=== PATIENT | female | born 1975 | race African-American/Black ===

== ENCOUNTER 2022-06-22 16:26 | Emergency (ER) | payer OTHER, SELFPAY ==
--- NOTE | ~2022-06-22 | XR_ITS ---
EXAMINATION: XR chest 2V DATE: 06/22/2022 17:03 INDICATION: Chest pain. Nausea and vomiting. TECHNIQUE: Frontal and lateral views of the chest were obtained. COMPARISON: None. FINDINGS: The chest demonstrates clear lungs without pneumonia, pleural effusion, or pneumothorax. Th e heart size is normal. Surgical clips in the right upper quadrant are likely from cholecystectomy. IMPRESSION: 1. No acute cardiopulmonary disease. Reviewed, dictated and finalized at location A.
--- NOTE | ~2022-06-22 | CT_ITS ---
EXAMINATION: CTA chest PE protocol DATE: 06/22/2022 22:23 INDICATION: elevated dimer, L shoulder/back/chest/breast pain TECHNIQUE: Computed tomography angiography (CTA) of the chest was performed with 100 mL Omnipaque-350 intravenous contrast timed to evaluate the pulmonary arteries. Coronal maximum intensity projection 3D-reconstructions were created by the technologist. The dose-length product (DLP) was 169.33 mGy-cm. Automated exposure control and iterative reconstruction technique were employed. COMPARISON: X-ray chest, same date. FINDINGS: Lung parenchyma and airways: Minimal subsegmental left medial basal atelectasis or consolidation. Pleura: Small left pleural effusion. Thoracic inlet, axillae and chest wall: Unremarkable. Thoracic aorta: Normal. Mediastinum: Normal. Heart and pericardium: Normal. Coronary artery calcifications: Absent. Upper abdomen: No significant finding. Bones: No acute osseous finding. Pulmonary arteries: Study quality: Adequate. No pulmonary emboli detected. IMPRESSION: No CT evidence of acute pulmonary embolus. Small left pleural effusion. Minimal, subsegmental left me dial basal atelectasis or consolidation. Otherwise, no acute process detected in the chest. Reviewed, dictated and finalized at location K. IMPRESSION: No CT evidence of acute pulmonary embolus. Small left pleural effusion. Minimal , subsegmental left medial basal atelectasis or consolidation. Otherwise, no ac white [place] process detected in the chest.
--- NOTE | 2022-06-22 16:28 | ECG_ITS ---
Measurements Intervals [place] Rate: 65 P: 62 MN: 145 QRS: 51 QRSD: 74 T: 44 QT: 359 QTc: 374 Interpretive Statements SINUS RHYTHM NO PREVIOUS ECG AVAILABLE FOR COMPARISON Electronically Signed On 06-23-2022 17:08:31 CDT by Kiarra Washington M.D.
[2022-06-22 17:05] VITALS: BP 149/95; PULSE 70; RESP 16; TEMP 36.9; O2SAT 100
[2022-06-22 17:28] LABS: Basophils Absolute Auto 0.1 K/mm3 (0.0-0.1); Basophils Percent Auto 0.9 % (0.2-1.2); Eosinophils Absolute Auto 0.2 K/mm3 (0-0.3); Hematocrit 41.9 % (37.0-47.0); Hemoglobin 13.5 g/dL (12.0-15.0); Immature Granulocyte Absolute 0.02 K/mm3 (0.00-0.031); Immature Granulocyte Percent A 0.3 % (0-0.5); Lymphocytes Absolute Auto 1.96 K/mm3 (0.9-3.2); Lymphocytes Percent Auto 25.8 % (18.3-44.2); Mean Corpuscular HGB Conc 32.2 g/dl (32-36); Mean Corpuscular Hemoglobin 29.5 pg (26-34); Mean Corpuscular Volume 91.7 fl (80-100); Mean Platelet Volume 10.2 fl (7.4-10.4); Monocytes Absolute Auto 0.6 K/mm3 (0.1-0.6); Monocytes Percent Auto 7.9 % (2.6-8.5); Neutrophils Absolute Auto 4.8 K/mm3 (1.3-6.7); Neutrophils Percent Auto 63.1 % (45.5-73.1); Platelet Count Result 417 k/mm3 (150-375); Red Blood Count 4.57 M/mm3 (4.2-5.4); White Blood Count 7.6 K/mm3 (4.5-10.0)
[2022-06-22 17:41] LABS: Alanine Aminotransferase 20 U/L (6-35); Albumin Level 4.7 g/dL (3.5-5.1); Alkaline Phosphatase 62 U/L (38-126); Anion Gap 10 mmol/L (8-16); Aspartate Amino Transferase 27 U/L (14-36); Bilirubin,Total 0.5 mg/dL (0.2-1.3); Blood Urea Nitrogen 6 mg/dL (7-17); Calcium 9.6 mg/dL (8.4-10.2); Carbon Dioxide 28 mmol/L (22-30); Chloride 101 mmol/L (98-107); Estimated CRCL calculation 86 ml/min; Estimated Glomerular Filt Rate > 60; Glucose 97 mg/dL (65-110); Lipase 36 U/L (23-300); Potassium 3.6 mmol/L (3.4-5.0); Sodium 139 mmol/L (137-145)
[2022-06-22 17:42] LABS: INR 1.1; Partial Thromboplastin Time 31.9 SECONDS (22.3-36.8); Prothrombin Time 13.9 Seconds (11.1-14.7)
[2022-06-22 17:53] LABS: Troponin I < 0.012 ng/mL (0.000-0.034)
--- NOTE | 2022-06-22 19:46 | ED.EXTPRO ---
HPI - Extremity Problem General Chief complaint: Extremity Problem,Nontraumatic Stated complaint: L should pain, radiates to L breast Time Seen by Provider: 06/22/22 19:43 Source: patient Mode of arrival: ambulatory Limitations: no limitations History of Present Illness HPI Narrative: Patient is a 46 y/o female who presents to the ED with c/o L sided chest/shoulder/rib pain. Patient reports she first developed pain in her left shoulder last . She denies any injury, strenuous activity, heavy lifting or other unusual activity. She states over the last week, the pain has moved into her left upper back, shoulder, arm and into her left lower ribs. The pain moved into her left-sided chest yesterday and today, which prompted her presentation. Does occasionally have pain with taking deep breath, but denies shortness of breath. Patient has not tried anything for her pain over the last week. Denies any fever, cough, cold symptoms, nausea, vomiting, abdominal pain, BLE pain or edema, hormonal control, recent long distance travel/immobilization, history of coronary disease. Related Data Allergies Allergy/AdvReac Type Severity Reaction Status Date / Time Sulfa (Sulfonamide AdvReac Hives Verified 06/22/22 23:06 Antibiotics) Review of Systems Review of Systems: CONSTITUTIONAL: Denies fever, chills, or sweats. ENT: Denies rhinorrhea, congestion, sore throat. CARDIOVASCULAR: Reports L sided CP. Denies chest pain, palpitations, or edema. RESPIRATORY: Reports pleuritic pain. Denies cough or dyspnea. GASTROINTESTINAL: Denies abdominal pain, nausea, vomiting. MUSCULOSKELETAL: Reports left upper back pain, left rib pain. NEUROLOGIC: Denies headache, numbness, or weakness. All systems reviewed & are unremarkable except as noted in HPI and below PMFSH Past Medical History Medical History (Updated 06/22/22 @ 23:01 by Gianna Jiang PA-C) No pertinent past medical history Surgical History Surgical History (Updated 06/22/22 @ 22:03 by Gianna Jiang PA-C) History of cholecystectomy Social History Social History (Updated 06/22/22 @ 22:03 by Gianna Jiang PA-C) Smoking status: Never smoker Exam Narrative: GENERAL: Well appearing, well-nourished, non-toxic, in no acute distress. HEAD: Normocephalic, atraumatic. NECK: Supple. No adenopathy, no masses. RESPIRATORY: Airway patent, respirations nonlabored. Clear to auscultation bilaterally, no rales, rhonchi, wheezing. No splinting. CARDIOVASCULAR: Regular rate and rhythm without murmurs, rubs, or gallops. Radial pulses 2+ and equal bilaterally. ABDOMINAL: Soft, nontender, nondistended, no hepatosplenomegaly. Normoactive BS. MUSCULOSKELETAL: Moves all extremities. Strength/ROM intact without gross deformities or TTP. No edema. No calf tenderness. No significant anterior chest wall tenderness to palpation. No TTP of L shoulder/L upper back/ribs. Full nonpainful ROM of LUE. SKIN: Warm, dry, normal color. No rashes. NEURO: A&O X3. Speech clear. Cranial nerves II-XII grossly intact. Steady gait. No ataxic movements. PSYCHIATRIC: Appropriate mood and affect. Normal interaction. Course Vital Signs Vital signs: Vital Signs Temperature 98.4 F 06/22/22 17:05 Pulse Rate 70 06/22/22 17:05 Respiratory Rate 16 06/22/22 17:05 Blood Pressure 149/95 H 06/22/22 17:05 Pulse Oximetry 100 06/22/22 17:05 Oxygen Delivery Room Air 06/22/22 17:05 Temperature 98.4 F 06/22/22 17:05 Pulse Rate 78 06/22/22 23:06 Respiratory Rate 19 06/22/22 23:06 Blood Pressure 135/78 06/22/22 23:06 Pulse Oximetry 100 06/22/22 23:06 Oxygen Delivery Room Air 06/22/22 17:05 MDM - Extremity (Nontraumatic) MDM Narrative Medical decision making narrative: Patient presented to ED with weeklong history of left-sided chest/shoulder/back/rib pain. VSS upon arrival. Patient without any tenderness to palpation on exam or able to reproduce pain. EKGs
[2022-06-22 20:00] LABS: Troponin I < 0.012 ng/mL (0.000-0.034)
[2022-06-22 20:34] LABS: D Dimer 0.52 ug/mL (<0.48)
[2022-06-22 22:17] LABS: Appearance Urine Slightly Cloudy (Clear); Bilirubin Urine Negative (Negative); Blood Urine Trace-lysed (Negative); Color Urine Yellow (Yellow); Glucose Urine UA Negative (Negative); Ketones Urine Trace mg/dL (Negative); Leukocyte Esterase Ur Negative LEU/UL (Negative); Nitrate Urine Negative (Negative); Protein Urine Negative (Negative); Specific Grav Ur 1.015 (1.001-1.035); Urobilinogen Urine 0.2 mg/dL (<2.0); pH Urine 5.5 (5.0-9.0)
[2022-06-22 22:22] LABS: Bacteria Urine 4+ /hpf; Mucus Urine Few /lpf; Squamous Epithelial Cell Urine Moderate /hpf (Few)
[2022-06-22 22:23] LABS: Add Urine Microscopic? YES
[2022-06-22 23:06] VITALS: BP 135/78; PULSE 78; RESP 19; O2SAT 100
[2022-06-22] MEDS: KETOROLAC 30 MG/ML VIAL (*BKC) IV PUSH (23:34)
[2022-06-22] MEDS: CEPHALEXIN 500 MG CAPSULE PO (23:36)
== END 2022-06-22 23:51 | disposition home or self-care (01) ==
PROVIDERS: Emergency Medicine; Physician Assistant; Emergency Provider Emergency Medicine
DX: J90 Pleural effusion, not elsewhere classified (principal); N30.01 Acute cystitis with hematuria; R07.89 Other chest pain
CPT/HCPCS: 36415; 71046; 71275; 80053; 81001; 81025; 83690; 84484; 85025; 85380; 85610; 85730; 87086; 87088; 93005; 96374; 99284; A9270; J1885; Q9967